=== PATIENT | female | born 1970 | race African-American/Black ===

== ENCOUNTER → 2017-05-01 | Outpatient (CLI) | payer OTHER ==
[~2017-05-01] MED LIST: COUMADIN,JANTOVE1 MG PO; Claritin,Alavart PO; Colace PO; Coumadin,Jantoven PO; ENDOCET 5-3251 EACH PO; Feosol PO; Fish Oil PO; Hydrodiuril,Oretic,E PO; LOTREL 5/201 CAPSUL1 PO; Micro-K,K-Tab,K-Dur, PO; OxyCONTIN PO; PRILOSEC40 MG PO; PROTONIX40 MG PO; Pyridoxine,Vitamin B PO; SENOKOT S,PE1 TABLET PO; Theragran PO; Toprol XL PO; Tylenol Regular Stre PO; Vitamin D PO; ZYRTEC10 M3 PO; oxyCODONE PO
== END | disposition home or self-care (01) ==
LOC: CDC 14:44
DX: Z01.810 Encounter for preprocedural cardiovascular examination (principal); G56.01 Carpal tunnel syndrome, right upper limb; M79.641 Pain in right hand
CPT/HCPCS: 93000